=== PATIENT | female | born 1990 | race Caucasian/White ===

== ENCOUNTER 2016-11-10 20:06 | Emergency (ER) | payer SELFPAY ==
[~2016-11-10] VITALS: Ht 167.6 cm; Wt 70.0 kg
[2016-11-10 20:14] VITALS: Ht 167.6 cm; Wt 70.0 kg
[2016-11-10] MEDS ORDERED: IBUPROFEN 600 MG TAB PO ONE (21:00)
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
== END 2016-11-10 21:00 | disposition left against medical advice (07) ==
LOC: E/R 20:06
DX: S30.1XXA Contusion of abdominal wall, initial encounter (principal); F15.10 Other stimulant abuse, uncomplicated; Y08.89XA Assault by other specified means, initial encounter; Y92.9 Unspecified place or not applicable
CPT/HCPCS: 99283